=== PATIENT | female | born 1995 | race Caucasian/White ===

== ENCOUNTER 2018-12-19 16:23 | Emergency (ER) | payer SELFPAY ==
[~2018-12-19] VITALS: Ht 162.6 cm; Wt 68.0 kg
[2018-12-19 16:30] VITALS: BP 129/85
--- NOTE | 2018-12-19 16:37 | NUR ---
PT AMBULATED TO [facility] AT THIS TIME, GIVEN URINE CUP.
--- NOTE | 2018-12-19 17:27 | NUR ---
NO CHANGE IN PATIENT CONDITION AT THIS TIME.
--- NOTE | 2018-12-19 20:24 | NUR ---
PT AMBULATED TO BED 01.
--- NOTE | 2018-12-19 20:30 | NUR ---
PT BIB FRIEND C/O PALIPITATION. PT STATES INTERMITTENT FEELING OF RAPID HEART BEAT SINCE FRIDAY; PT STATES FEELING IS UNPROVOKED; BL HANDS FEELS COLD INTERMITTENTLY. PT STATES 0/10 PAIN AT THIS TIME. DENIES N/V/D. --PT BREATHING EQUAL AND UNLABORED; LUNG SOUNDS CLEAR BL. SKIN WARM DRY AND INTACT. CLEAR SPEACH. PT ACTING APPROPRIALTY. 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 PT IN GOWN, IN BED; BED IN LOWER LOCKED POSITION. ER MD AWARE OF PT STATUS. WILL CONTINUE TO MONITOR. PMH: DENIES RX: DENIES
--- NOTE | 2018-12-19 20:51 | NUR ---
DR. FUCHS AT BEDSIDE FOR EVALUATION.
[2018-12-19 20:59] VITALS: BP 131/75
--- NOTE | 2018-12-19 21:00 | NUR ---
Patient discharged by Dr. Loredo with v/s stable. Written and verbal after care instructions given and explained. Ambulatory with steady gait. Advised to follow up with PMD.
== END 2018-12-19 21:00 | disposition home or self-care (01) ==
LOC: MED 16:23
DX: F41.9 Anxiety disorder, unspecified (principal)
CPT/HCPCS: 81002; 81025; 99282